=== PATIENT | male | born 1965 | race Caucasian/White ===

== ENCOUNTER 2018-04-15 15:11 | Emergency (ER) | payer BC, MEDICAID ==
[~2018-04-15] VITALS: Ht 182.9 cm; Wt 104.0 kg
[2018-04-15] MEDS ORDERED: DOXYCYCLINE 100MG CAPSULE PO STA (18:54)
[2018-04-15] MEDS ORDERED: HYDROcodone/acetaminophen 10/325mg tab PO ONE (18:55)
[2018-04-15] MEDS ORDERED: HYDR-3965 PO (18:58)
[2018-04-15] MEDS ORDERED: DOXY100C43 PO (18:58)
[2018-04-15 19:57] VITALS: BP 127/82
== END 2018-04-15 20:01 | disposition home or self-care (01) ==
LOC: ER 15:11
DX: S82.61XA Displaced fracture of lateral malleolus of right fibula, initial encounter for closed fracture (principal); L03.115 Cellulitis of right lower limb; F17.200 Nicotine dependence, unspecified, uncomplicated; Z79.899 Other long term (current) drug therapy; X50.1XXA Overexertion from prolonged static or awkward postures, initial encounter; Y93.89 Activity, other specified; Y92.89 Other specified places as the place of occurrence of the external cause; Y99.8 Other external cause status
CPT/HCPCS: 29515; 73610; 73630; 99283

== ENCOUNTER 2018-04-30 12:09 | Outpatient (CLI) | payer MEDICAID ==
[~2018-04-30 12:09] MED LIST: HYDR-3965 PO
[2018-04-30 12:13] VITALS: BP 130/83
== END 2018-04-30 12:59 | disposition home or self-care (01) ==
LOC: ORTHO 12:09
PROVIDERS: ATTEND Nurse Practitioner Family
DX: S82.61XA Displaced fracture of lateral malleolus of right fibula, initial encounter for closed fracture (principal); F17.210 Nicotine dependence, cigarettes, uncomplicated; F10.10 Alcohol abuse, uncomplicated; Z79.899 Other long term (current) drug therapy; X50.1XXA Overexertion from prolonged static or awkward postures, initial encounter; Y93.89 Activity, other specified; Y92.89 Other specified places as the place of occurrence of the external cause; Y99.8 Other external cause status
CPT/HCPCS: 73610; 99213

== ENCOUNTER 2018-05-13 13:38 | Outpatient (CLI) | payer MEDICAID ==
[2018-05-13 13:31] VITALS: BP 120/85
== END 2018-05-13 14:15 | disposition home or self-care (01) ==
LOC: ORTHO 13:38
PROVIDERS: ATTEND Nurse Practitioner Family
DX: S82.61XD Displaced fracture of lateral malleolus of right fibula, subsequent encounter for closed fracture with routine healing (principal); F10.10 Alcohol abuse, uncomplicated; F17.200 Nicotine dependence, unspecified, uncomplicated; W10.1XXD Fall (on)(from) sidewalk curb, subsequent encounter
CPT/HCPCS: 73610; 99213

== ENCOUNTER 2018-06-03 14:25 | Outpatient (CLI) | payer MEDICAID ==
[2018-06-03 14:27] VITALS: BP 126/86
== END 2018-06-03 14:44 | disposition home or self-care (01) ==
LOC: ORTHO 14:25
PROVIDERS: ATTEND Nurse Practitioner Family
DX: S82.431G Displaced oblique fracture of shaft of right fibula, subsequent encounter for closed fracture with delayed healing (principal); M77.31 Calcaneal spur, right foot; F17.210 Nicotine dependence, cigarettes, uncomplicated; Z72.89 Other problems related to lifestyle; W22.8XXD Striking against or struck by other objects, subsequent encounter
CPT/HCPCS: 73610; 99213

== ENCOUNTER 2018-07-01 12:59 | Outpatient (CLI) | payer MEDICAID ==
[2018-07-01 13:04] VITALS: BP 137/101
== END 2018-07-01 13:27 | disposition home or self-care (01) ==
LOC: ORTHO 12:59
PROVIDERS: ATTEND Nurse Practitioner Family
DX: S82.61XG Displaced fracture of lateral malleolus of right fibula, subsequent encounter for closed fracture with delayed healing (principal); F17.200 Nicotine dependence, unspecified, uncomplicated; X58.XXXD Exposure to other specified factors, subsequent encounter
CPT/HCPCS: 73610; 99213

== ENCOUNTER 2018-07-22 13:44 | Outpatient (CLI) | payer MEDICAID ==
[2018-07-22 13:31] VITALS: BP 129/77
== END 2018-07-22 14:15 | disposition home or self-care (01) ==
LOC: ORTHO 13:44
PROVIDERS: ATTEND Nurse Practitioner Family
DX: S82.61XG Displaced fracture of lateral malleolus of right fibula, subsequent encounter for closed fracture with delayed healing (principal); F17.210 Nicotine dependence, cigarettes, uncomplicated; W22.8XXD Striking against or struck by other objects, subsequent encounter
CPT/HCPCS: 73610; 99213

== ENCOUNTER 2018-08-25 15:50 | Outpatient (CLI) | payer MEDICAID ==
[2018-08-26] MEDS ORDERED: FLO0.4C PO (10:07)
== END 2018-08-25 16:00 | disposition home or self-care (01) ==
LOC: ORTHO 15:50
PROVIDERS: ATTEND Orthopaedic Surgery
DX: S82.831G Other fracture of upper and lower end of right fibula, subsequent encounter for closed fracture with delayed healing (principal)
CPT/HCPCS: 73610; 99212; G0463

== ENCOUNTER 2018-08-29 06:24 | Emergency (ER) | payer MEDICAID ==
[~2018-08-29] VITALS: Ht 182.9 cm; Wt 100.0 kg
[~2018-08-29 06:24] MED LIST changes: +FLO0.4C PO; -HYDR-3965 PO
[2018-08-29 06:33] VITALS: BP 141/92
== END 2018-08-29 07:44 | disposition home or self-care (01) ==
LOC: ER 06:25
DX: R33.9 Retention of urine, unspecified (principal); Z79.899 Other long term (current) drug therapy
CPT/HCPCS: 99281

== ENCOUNTER 2018-08-30 05:01 | Emergency (ER) | payer MEDICAID ==
[~2018-08-30] VITALS: Ht 182.9 cm; Wt 73.0 kg
[2018-08-30 05:05] VITALS: BP 132/78
[2018-08-30] MEDS ORDERED: LIDOcaine 2% 10ml TOPICAL JELLY (Urojet) MM ONE (05:20)
[2018-08-30 06:09] LABS: CLARITY,URINE CLEAR (Clear); COLOR,URINE YELLOW (Yellow); GLUCOSE, URINE NEGATIVE (Neg); KETONES,URINE NEGATIVE (Neg); LEUKOCYTE ESTERASE ,URINE NEGATIVE (Neg); NITRITES, URINE POSITIVE (Neg); OCCULT BLOOD,URINE NEGATIVE (Neg); PH,URINE 6.5 (4.8-8.0); PROTEIN,URINE NEGATIVE (Neg); UROBILINOGEN,URINE 0.2 E.U/dL (0.2-1.0)
[2018-08-30 06:13] LABS: UA COLLECTION TYPE FOLEY CATH
[2018-08-30 06:14] LABS: BACTERIA,URINE 4+ /HPF (Neg); MUCUS STRANDS NONE SEEN /LPF (Neg); RBC,URINE 0-2 /HPF (0-2); SQUAMOUS EPITHELIAL CELL,UR NONE SEEN /LPF (FEW); WBC,URINE NONE SEEN /HPF (0-4)
[2018-09-01 11:12] LABS: % FREE PSA 12.9 % (.); PSA, FREE 0.58 ng/mL
== END 2018-08-30 05:55 | disposition home or self-care (01) ==
LOC: ER 05:02
DX: R33.9 Retention of urine, unspecified (principal); R10.30 Lower abdominal pain, unspecified; Z79.899 Other long term (current) drug therapy
CPT/HCPCS: 36415; 51702; 81001; 84153; 84154; 87077; 87088; 87186; 99284

== ENCOUNTER 2018-09-03 05:05 | Emergency (ER) | payer MEDICAID ==
[~2018-09-03] VITALS: Ht 182.9 cm; Wt 104.5 kg
[2018-09-03 05:07] VITALS: BP 134/80
[2018-09-03] MEDS ORDERED: NITR100C6 PO (05:23)
[2018-09-03] MEDS ORDERED: LIDOcaine 2% 10ml TOPICAL JELLY (Urojet) MM ONE (05:25)
[2018-09-03] MEDS ORDERED: nitrofuran/nitrofuran macrocrysal 100 MG capsule PO ONE (05:25)
== END 2018-09-03 06:04 | disposition home or self-care (01) ==
LOC: ER 05:05
DX: R33.0 Drug induced retention of urine (principal); Z79.899 Other long term (current) drug therapy
CPT/HCPCS: 51702; 99284

== ENCOUNTER 2018-09-26 23:00 | Emergency (ER) | payer MEDICAID ==
[~2018-09-26] VITALS: Ht 185.4 cm; Wt 106.0 kg
[~2018-09-26 23:00] MED LIST changes: +NITR100C6 PO
[2018-09-26 23:16] VITALS: BP 111/72
== END 2018-09-27 00:47 | disposition left against medical advice (07) ==
LOC: ER 23:01
DX: T83.038A Leakage of other urinary catheter, initial encounter (principal); Z53.21 Procedure and treatment not carried out due to patient leaving prior to being seen by health care provider; Z79.899 Other long term (current) drug therapy; Y84.6 Urinary catheterization as the cause of abnormal reaction of the patient, or of later complication, without mention of misadventure at the time of the procedure; Y92.89 Other specified places as the place of occurrence of the external cause

== ENCOUNTER 2023-10-23 11:40 | Outpatient (CLI) | payer MEDICAID ==
[~2023-10-23 11:40] MED LIST changes: -FLO0.4C PO
== END 2023-10-23 23:59 | disposition home or self-care (01) ==
LOC: MRI 11:40
PROVIDERS: ATTEND Nurse Practitioner
DX: Z53.9 Procedure and treatment not carried out, unspecified reason (principal)